=== PATIENT | female | born 1950 | race Caucasian/White ===

== ENCOUNTER 2021-06-23 09:21 | Day surgery (SDC) | payer MEDICARE ==
[2021-06-23] MEDS ORDERED: Midazolam HCl 2 mg/2 ml Vial ONE (10:46)
[2021-06-23] MEDS ORDERED: Fentanyl 100 MCG/2 ML VIAL ONE ×2 (10:46→12:54)
[2021-06-23] MEDS ORDERED: HYDROmorphone 2 MG/ML VIAL ONE (10:47)
[2021-06-23] MEDS ORDERED: Xylocaine 1% w/ Epi 1:100K 10 ML VIAL ONE (10:50)
[2021-06-23] MEDS ORDERED: Bupivacaine 0.25% 10 ML VIAL ONE (10:50)
[2021-06-23] MEDS ORDERED: ceFAZolin 2 GM/Dextrose 50 ML IVPB ONE (11:05)
[2021-06-23] MEDS ORDERED: Glycopyrrolate 0.2 MG/ML 5 ML SYRINGE ONE (11:15)
[2021-06-23] MEDS ORDERED: Ondansetron PF 4 MG/2 ML Vial ONE (11:15)
[2021-06-23] MEDS ORDERED: PROPOFOL 200 MG/20 ML VIAL ONE (11:15)
[2021-06-23] MEDS ORDERED: Rocuronium Bromide 10 MG/ML (10ML VIAL) ONE (11:15)
[2021-06-23] MEDS ORDERED: ePHEDrine 50 MG/ML VIAL ONE (11:15)
[2021-06-23] MEDS ORDERED: Lidocaine 1% PF 5 ML VIAL ONE (11:15)
[2021-06-23] MEDS ORDERED: Ketorolac Tromethamine 30 MG/ML VIAL ONE (11:15)
[2021-06-23] MEDS ORDERED: Phenylephrine 10 MG/ML VIAL ONE (11:15)
[2021-06-23] MEDS ORDERED: Dexamethasone 20 MG/5 ML VIAL ONE (11:15)
[2021-06-23] MEDS ORDERED: traMADol HCl 50 MG TAB ONE (14:07)
== END 2021-06-23 14:49 | disposition home or self-care (01) ==
LOC: SDC 09:21
PROVIDERS: ATTEND Specialist
PROC: 0FT44ZZ Resection of Gallbladder, Percutaneous Endoscopic Approach (ICD-10-PCS; principal; 2021-06-23)
DX: K81.1 Chronic cholecystitis (principal); K82.1 Hydrops of gallbladder; K82.8 Other specified diseases of gallbladder; Z88.5 Allergy status to narcotic agent
CPT/HCPCS: 47562; C1713; 88304; J0690; J1100; J1170; J1885; J2250; J2370; J2405; J2704; J3010; J3490; S0020